=== PATIENT | male | born 1950 | race Caucasian/White ===

== ENCOUNTER 2025-04-23 14:50 | Day surgery (SDC) | payer MEDICARE, BC ==
[~2025-04-23 14:50] MED LIST: Pilocarpine 4% Ophth Soln 15 ML Bot EYERT SCH
[2025-04-23] MEDS: Polymyxin B/Trimethoprim 10 ML Bottle EYERT SCH (14:57)
[2025-04-23] MEDS: Tropicamide 1% Ophth Soln 3 ML Bottle EYERT SCH (15:09)
[2025-04-23] MEDS: Lidocaine 1% PF 2 ML SDV INJECT SCH (16:00)
[2025-04-23] MEDS: Tetracaine HCl/PF 0.5% 4 ML Bottle EYEBOTH SCH (16:00)
[2025-04-23] MEDS: Cefuroxime 10 MG/ML SYRINGE EYERT SCH (16:07)
== END 2025-04-23 16:17 | disposition home or self-care (01) ==
LOC: JD.SDS 14:50
PROVIDERS: ATTEND Ophthalmology
DX: H25.813 Combined forms of age-related cataract, bilateral (principal); H35.363 Drusen (degenerative) of macula, bilateral; H02.834 Dermatochalasis of left upper eyelid; H02.831 Dermatochalasis of right upper eyelid; H16.223 Keratoconjunctivitis sicca, not specified as Sjogren's, bilateral; H16.103 Unspecified superficial keratitis, bilateral; I10 Essential (primary) hypertension; I48.91 Unspecified atrial fibrillation; Z79.899 Other long term (current) drug therapy
CPT/HCPCS: A9270-GY; J0697; J3490